=== PATIENT | male | born 1985 | race Caucasian/White ===

== ENCOUNTER 2018-09-15 10:09 | Outpatient (CLI) | payer SELFPAY ==
--- NOTE | 2018-09-15 11:42 | PC.NURSE ---
vs- 122/84, hr 62, 98 oxygen room air, rr 18, temp 97.8
== END 2018-09-15 10:25 | disposition home or self-care (01) ==
PROVIDERS: Visit Provider Nurse Practitioner Family
DX: Z02.4 Encounter for examination for driving license (principal)

== ENCOUNTER 2019-09-24 13:21 | Outpatient (CLI) | payer SELFPAY ==
[2019-09-24 15:40] LABS: Apearance,Urine Clear (Clear); Bilirubin,Urine Negative (Negative); Blood, Urine Negative (Negative); Color,Urine Yellow (Yellow); Glucose,Urine (UA) Negative (Negative); Ketones,Urine Negative (Negative); Protein,Urine Negative (Negative); UTC Leukocyte Esterase,Urine Negative (Negative); UTC Nitrate,Urine Negative (Negative); Urobilinogen,Urine 0.2 EU/dl (0.2)
--- NOTE | 2019-09-24 16:42 | PC.NURSE ---
PT SEEN FOR A [facility] PHYSICAL
== END 2019-09-24 16:42 | disposition home or self-care (01) ==
PROVIDERS: Visit Provider Nurse Practitioner Family
DX: Z02.4 Encounter for examination for driving license (principal)
CPT/HCPCS: 81003

== ENCOUNTER → 2020-05-27 12:18 | Outpatient (CLI) | payer OTHER, SELFPAY ==
--- NOTE | 2020-05-27 12:24 | XR_ITS ---
PROCEDURE: XR KNEE LT 4V CLINICAL INDICATION: left knee pain; weightbearing COMPARISON: No exams were available for comparison FINDINGS: No fracture or dislocation. No lytic or blastic change. There is normal mineralization. The joint spaces are well-preserved. No significant degenerative/arthritic changes. No erosive changes evident. Other findings:None. IMPRESSION: No acute findings. Dictated by: Vinayak Blanton MD 05/27/2020 12:54 Vinayak Blanton MD in [place] 05/27/2020 12:54
== END ==
PROVIDERS: Visit Provider Orthopaedic Surgery
DX: M25.562 Pain in left knee (principal)
CPT/HCPCS: 73564

== ENCOUNTER → 2020-06-06 13:11 | Outpatient (CLI) | payer OTHER, SELFPAY ==
--- NOTE | 2020-06-06 13:11 | MR_ITS ---
PROCEDURE: MR KNEE LT WO CON CLINICAL INDICATION: evaluate for a meniscal tear LT CHRONIC ANTERIOR KNEE PAIN, INJURY 10 YEARS AGO. COMPARISON: CR XR KNEE LT 4V from 05/27/2020 TECHNIQUE: Routine multiplanar multi echo sequences are performed without gadolinium enhancement. FINDINGS: The cruciate ligaments and collateral ligaments have an unremarkable appearance. The quadriceps and patellar tendons are. There is mild thickening of the patellar tendon proximally with increased T2 signal consistent with tendinopathy/tendinosis. There is some increased T2 signal in the Hoffa's fat pad and there is some reactive edema in the lower pole of the patella. There is questionable tear of the posterior patellar tendon at the insertion on the patella versus underlying reactive edema. There is mild thinning of the patellar cartilage posteriorly. No meniscal tear apparent. Minimal amount fluid noted in within the knee joint and in the retropatellar region. IMPRESSION: 1. No internal derangement. 2. Patellar tendinosis with questionable partial tear along the patellar tendon posteriorly at the patellar insertion. Consider follow-up to confirm stability or resolution of the abnormal signal intensity following treatment. 3. Chondromalacia patella Dictated by: Vinayak Blanton MD 06/08/2020 07:40 Vinayak Blanton MD in [place] 06/08/2020 07:40
== END ==
PROVIDERS: PCP Emergency Medicine; Visit Provider Orthopaedic Surgery
DX: M25.562 Pain in left knee (principal); G89.29 Other chronic pain; Z87.828 Personal history of other (healed) physical injury and trauma
CPT/HCPCS: 73721

== ENCOUNTER → 2020-12-15 10:43 | Outpatient (CLI) | payer SELFPAY | PROVIDERS: Visit Provider Nurse Practitioner Family | DX: Z02.4 Encounter for examination for driving license (principal) ==

== ENCOUNTER 2021-01-05 09:22 | Emergency (ER) | payer OTHER, SELFPAY ==
[2021-01-05 10:30] VITALS: BP 146/96; PULSE 74; RESP 18; TEMP 37; O2SAT 100; BMI 28.5
[2021-01-05 11:04] VITALS: BP 146/96; PULSE 74; RESP 18; TEMP 37; O2SAT 100
--- NOTE | 2021-01-05 11:08 | HMH.EDUTC ---
[facility] [place] Disposition Clinical Impression: Exposure to COVID-19 virus Disposition: Home, Self-Care Condition on Discharge: Good Instructions: DI for COVID-19 (Suspected or Confirmed ), Preventing the Spread of Coronavirus Discharge Instructions Additional Instructions: *Monitor Temp, Over the counter Motrin or Tylenol as directed/as needed Tylenol every 4 hours and Motrin every 6 hours (as long as your family doctor has told you that you can take it) for fever or pa-in. and straight to ER if unable to lower temp less than 101.0 after medication given Follow up IMMEDIATELY for new or worsening symptoms or no Noticeable improvement over the next 48-72 hours. 911 for difficulty breathing or swallowing You were tested for today for COVID19 your test result should be back in the next 24-48 hours, Check the [facility] to see if your test results are back in the next 48 it may say detected that means your result is positive.You was given handout instructions on how log on and see your results. If you do not have internet access you may call the [facility] for your results [phone] You was given a handout with instructions for Self Quarantine and Self isolation for while you wait on test results and what to do if they are positive If you are positive the Health Dept will be contacting you also Make sure to take your Vitamins Vit. C Vit D and Zinc if you can take them Referrals: Provider,Referral, [Primary Care Provider] - As needed Forms: Work/School Release Medical Decision Making - Kamran Inquiry Pt receiving controlled substance: No Kamran was queried for this patient: No Vital Signs: 01/05/21 10:30 01/05/21 11:04 Temperature 98.6 F 98.6 F Temperature Source Oral Pulse Rate 74 Pulse Rate [Right Brachial] 74 Respiratory Rate 18 18 Blood Pressure 146/96 H Blood Pressure [Right Arm] 146/96 H Blood Pressure Mean [Right Arm] 112 Blood Pressure Source [Right Arm] Automatic Cuff Blood Pressure Position [Right Arm] Sitting 02 Sat by Pulse Oximetry 100 Oxygen Delivery Method Room Air Orders (Tests/Meds): ORDERS Category Date Time Status Covid-19 Nasal PCR ([facility]) Routine Lab 01/05/21 10:36 Received [facility] [place] HPI - General Stated complaint: covid test Time Seen by Provider: 01/05/21 11:08 Mode of Arrival: Ambulatory Source of Information: Patient Limitations: No Limitations Description of Symptoms (Recalled from Triage Doc. by RN): COVID TEST D/T EXPOSURE. DENIES SYMPTOMS HEENT Symptoms (Recalled from RN notes): No Resp Symptoms (Recalled from RN notes): No Skin Symptoms (Recalled from RN notes): No MS Symptoms (Recalled from RN notes): No Functional Status (Recalled from RN notes): WNL - History of Present Illness Provider Complaint: Patient state that someone at work tested positive for COVID and his employer wanted everyone to get tested States that he is not having any symptoms - Related Data Home Medications Medication Instructions Recorded Confirmed No Known Home Medications 06/12/20 06/12/20 Allergies Allergy/AdvReac Type Severity Reaction Status Date / Time No Known Allergies Allergy Verified 06/12/20 13:37 - Worker's Comp Is this a Worker's Comp case?: No [facility] History - Hepatitis A Screen Drug use history?: No High risk sexual behaviors?: No History of sexually transmitted infection?: No Currently employed?: No Childcare worker?: No Do you have indoor plumbing?: Yes Do you have electricity?: Yes Attestation statement:: This patient has been screened for Hepatitis A risk factors. I have reviewed the patient's past medical history: Yes Medical History: Reports:: Anxiety, Depression Denies:: Diabetes Mellitus Type 1, Diabetes Mellitus Type 2 Laterality Cases: Bilateral: Myringotomy (Ear Tubes) Other Surgeries: Yes: Other Amputation: No Fractures: No Comment: Vickery teeth. - Social History Smoking Status: Never smoker Alcohol Intake: current Alcohol Inta
== END 2021-01-05 11:16 | disposition home or self-care (01) ==
PROVIDERS: Emergency Provider Nurse Practitioner
DX: Z20.822 Contact with and (suspected) exposure to COVID-19 (principal)
CPT/HCPCS: 99202; G0463; U0003

== ENCOUNTER 2021-11-19 10:43 | Emergency (ER) | payer OTHER, SELFPAY ==
[2021-11-19 10:44] VITALS: BP 139/102; PULSE 93; RESP 16; TEMP 36.9; O2SAT 98; BMI 29.9
[2021-11-19 11:00] VITALS: BP 136/96; PULSE 85; RESP 16; O2SAT 97
--- NOTE | 2021-11-19 11:02 | HMH.EDWNDL ---
ED Disposition Clinical Impression: Laceration Disposition: Home, Self-Care Condition on Discharge: Good Instructions: DI for Laceration Repair, DI for Laceration Repair -- Complex Suture Referrals: Yaya Lester MD [Primary Care Provider] - Time of Disposition: 11:33 - Critical Care Critical Care Time: No Attestation: On 11/19/21, the high probability of a clinically significant, sudden or life threatening deterioration of the following system(s) required my full and direct attention, intervention and personal management. The time I documented below is in addition to time spent performing reported procedures but includes the following listed in this critical care notation. Medical Decision Making - Medical Records Medical records reviewed: Yes: I reviewed the patient's medical records. - Kamran Inquiry Pt receiving controlled substance: No Vital Signs: 11/19/21 10:44 11/19/21 11:00 Temperature 98.5 F Temperature Source Oral Pulse Rate 85 Pulse Rate [Radial] 93 H Respiratory Rate 16 16 Blood Pressure 136/96 H Blood Pressure [Right Arm] 139/102 H Blood Pressure Mean 109 Blood Pressure Mean [Right Arm] 114 Blood Pressure Position [Right Arm] Sitting 02 Sat by Pulse Oximetry 98 97 Oxygen Delivery Method Room Air Room Air Wound/Laceration HPI - General Chief Complaint: Wound/Laceration Stated Complaint: wc 11/19 right leg laceration Time Seen by Provider: 11/19/21 11:06 Mode of Arrival: Ambulatory Limitations: No Limitations Description of Symptoms (Recalled from ER Triage Doc. by RN): to ed per pvt car pt states at work using a chainsaw and cut rt upper leg. 5-6 cm laceration noted. no active bleeding note. - History of Present Illness HPI narrative: 36-year-old male, reports tetanus status is up-to-date, presents with laceration to the right anterior thigh, this was sustained while using a chainsaw at work, injury is fairly superficial with mild loss of the skin only with exposed fat tissue. He denies any other injuries, bleeding is controlled at time of arrival. - Related Data Home Medications Medication Instructions Recorded Confirmed No Known Home Medications 06/12/20 06/12/20 Allergies Allergy/AdvReac Type Severity Reaction Status Date / Time No Known Allergies Allergy Verified 06/12/20 13:37 [facility] History - Hepatitis A Screen Attestation statement:: This patient has been screened for Hepatitis A risk factors. Medical History: Reports:: Anxiety, Depression Denies:: Diabetes Mellitus Type 1, Diabetes Mellitus Type 2 Laterality Cases: Bilateral: Myringotomy (Ear Tubes) Other Surgeries: Yes: Other Amputation: No Fractures: No Comment: [place] teeth. - Social History Smoking Status: Never smoker Alcohol Intake: current Alcohol Intake Frequency:: holidays/special occasions only Substance Use Type: denies use Occupational Status: employed Housing: house Household Members: family - Psychiatric History Pschychiatric History:: Reports:: Anxiety, Depression ROS Obtained: Yes All systems reviewed & no additional complaints - Constitutional Constitutional: Reports system reviewed and no additional complaints, except as docu - Eyes Eyes: Reports system reviewed and no additional complaints, except as docu - ENT Ears, Nose, Mouth, and Throat: Reports system reviewed and no additional complaints, except as docu - Cardiovascular Cardiovascular: Reports system reviewed and no additional complaints, except as docu - Respiratory Respiratory: Reports system reviewed and no additional complaints, except as docu - Gastrointestinal Gastrointestingal: Reports: system reviewed and no additional complaints, except as docu - Musculoskeletal Musculoskeletal: Reports system reviewed and no additional complaints, except as docu - Integumentary/Breasts Comments: Wound to the anterior right thigh Physical Exam - General General appearance: alert, in
--- NOTE | 2021-11-19 11:17 | PC.NURSE ---
er doctor at bedside to suture
--- NOTE | 2021-11-19 11:18 | PC.NURSE ---
VIRIDIANA HARDY at suturing
[2021-11-19 11:30] VITALS: BP 135/87; PULSE 85; RESP 17; O2SAT 98
[2021-11-19 11:47] VITALS: BP 135/87; PULSE 85; RESP 16; TEMP 36.9; O2SAT 98
== END 2021-11-19 11:47 | disposition home or self-care (01) ==
PROVIDERS: Emergency Provider Emergency Medicine; PCP Family Medicine
DX: S71.111A Laceration without foreign body, right thigh, initial encounter (principal); W31.82XA Contact with other commercial machinery, initial encounter; Y92.69 Other specified industrial and construction area as the place of occurrence of the external cause; Y99.0 Civilian activity done for income or pay
CPT/HCPCS: 12032; 99282

== ENCOUNTER 2023-03-01 08:42 | Emergency (ER) | payer OTHER, SELFPAY ==
[2023-03-01 08:43] VITALS: BP 152/109; PULSE 72; RESP 18; TEMP 36.5; O2SAT 98; BMI 30.7
--- NOTE | 2023-03-01 08:45 | PC.NURSE ---
DR FAYE AT [facility]
--- NOTE | 2023-03-01 08:51 | US_ITS ---
FINAL REPORT CLINICAL HISTORY: left testicular pain/swelling, poss torsion FINDINGS: Limited sonographic images of the scrotum were obtained. The right testicle measures 3.8 cm in length. No mass is identified. The left testicle is enlarged measuring 4.8 cm in length. It is hypervascular, likely represents orchitis. The left epididymis is also hypervascular. There are small varicoceles bilaterally. IMPRESSION: Left epididymo-orchitis. Reviewed, Interpreted and Dictated by Clinton Nelson III, MD Transcribed by Sharyn Reed Authenticated and [facility]
--- NOTE | 2023-03-01 08:53 | PC.NURSE ---
RADIOLOGY NOTIFIED OF U/S
--- NOTE | 2023-03-01 08:53 | HMH.EDGENADL ---
Discharge Plan Disposition Patient Disposition: Home, Self-Care Prescriptions Prescriptions: New levofloxacin 500 mg tablet 500 mg PO DAILY 10 Days Qty: 10 0RF ondansetron HCl 4 mg tablet 4 mg PO Q8H PRN (Reason: nausea and vomiting) 5 Days Qty: 30 0RF Referrals Follow up/Referrals: Provider,Referral, [Primary Care Provider] - See instructions Activity Restrictions/Add. Instructions Additional Instructions/Restrictions: Please take Levaquin as prescribed for treatment of your testicular infection. Please follow-up with your primary care provider. Take Tylenol and ibuprofen as needed for pain. Please return to the emergency department if you develop any new or worsening symptoms or become concerned for your health. Clinical Impressions Clinical Impression: Acute epididymo-orchitis Discharge ED Provider: Landon Ramirez Adult HPI General Chief complaint: PAIN Stated complaint: PAIN IN LT LEG AND BACK Time Seen by Provider: 03/01/23 08:50 History of Present Illness HPI narrative: 37-year-old male, reportedly previously healthy presents with left testicular pain and swelling. He reports he is concerned about a hernia, he has never been diagnosed with hernia before. He reports pain has been ongoing for the last week. Is intermittent in nature, severe at times, other times goes away completely. He reports no history of testicular pathology. Reports no dysuria, no discharge. No history of fever or recent illness. He is monogamous with his and denies any concern for STDs. Related Data Previous Rx's Medication Instructions Recorded levofloxacin 500 mg tablet 500 mg PO DAILY 10 days #10 tabs 03/01/23 ondansetron HCl 4 mg tablet 4 mg PO Q8H PRN nausea and 03/01/23 vomiting 5 days #30 tabs Allergies Allergy/AdvReac Type Severity Reaction Status Date / Time No Known Allergies Allergy Verified 06/12/20 13:37 [facility] Disclaimer: The information contained in this section may have been updated after the patient was seen, as this information can be updated by other users. Social History (System 12/16/17 @ 15:40 by Geena Adames) Smoking Status: Never smoker alcohol intake: current substance use type: denies use current occupational status: employed Travel in the last 8 weeks: None household members: family housing: house ROS Obtained: Yes All systems reviewed & no additional complaints except as documented Physical Exam General General appearance: alert and in no apparent distress Head Head exam: atraumatic and normocephalic Eye Eye exam: Present normal appearance, PERRL and EOMI ENT ENT exam: Present normal oropharynx and normal external ear exam Neck Neck exam: Present normal inspection and full ROM Chest Chest inspection: Present normal inspection and symmetric chest wall rise; Absent tenderness Respiratory Respiratory exam: Present normal lung sounds bilaterally; Absent respiratory distress Cardiovascular Cardiovascular exam: Present regular rate and normal rhythm Abdominal Exam Abdominal exam: Present soft; Absent distention, tenderness or guarding exam: Present other (Normal penis and scrotum. Left testicle high riding, grossly swollen compared to left, significantly tender. No fullness in the inguinal canal bilaterally.) Extremities Exam Extremities exam: Present normal inspection; Absent edema or joint swelling Back Exam Back exam: Present normal inspection; Absent tenderness Neurological Exam Neurological exam: Present alert and oriented X3; Absent motor sensory deficit Psychiatric Psychiatric exam: Present normal affect and normal mood Skin Skin exam: Present warm, dry and normal color Lymphatic Lymphatic Findings: no adenopathy Medical Decision Making Medical Records Medical records reviewed: Yes I reviewed the patient's medical records. Kamran Inquiry Pt receiving controlled substance: No Kamran was queried for this patient: N
--- NOTE | 2023-03-01 08:55 | PC.NURSE ---
pt given ice water; sommeray's by Dr. Ramirez
[2023-03-01 09:14] VITALS: BP 122/73; PULSE 77; RESP 14; O2SAT 99
--- NOTE | 2023-03-01 09:16 | PC.NURSE ---
Rounded on patient; no needs at this time. Re-checked vitals. Call ambrosio within reach. Patient aware that we are waiting for [place] to go to [place].
--- NOTE | 2023-03-01 09:17 | PC.NURSE ---
PT TO [facility]
[2023-03-01 10:42] LABS: Microscopic, Urine URINE MICROSCOPIC (MICROSCOPIC)
[2023-03-01 10:46] LABS: Appearance,Urine CLEAR (Clear); Bilirubin,Urine Negative (Negative); Blood, Urine Negative (Negative); Color,Urine YELLOW (Yellow); Glucose,Urine (UA) Negative (Negative); Ketones,Urine Negative (Negative); Leukocyte Esterase,Urine Negative (Negative); Nitrate,Urine Negative (Negative); PH,Urine 6.5 (5.0-8.5); Protein,Urine Negative (Negative); Urobilinogen,Urine 0.2 EU/dl (0.2)
--- NOTE | 2023-03-01 10:46 | PC.NURSE ---
DR FAYE AT BEDSIDE TO UPDATE PT
[2023-03-01 11:31] LABS: Squamous Epithelial Cell,Urine Occasional #/hpf (0-5)
--- NOTE | 2023-03-01 11:40 | PC.NURSE ---
DR FAYE AT BEDSIDE TO UPDATE PT
[2023-03-01 11:49] VITALS: BP 122/73; PULSE 77; RESP 14; TEMP 36.5; O2SAT 99
== END 2023-03-01 11:50 | disposition home or self-care (01) ==
PROVIDERS: Emergency Provider Emergency Medicine
DX: N45.3 Epididymo-orchitis (principal)
CPT/HCPCS: 76870; 81001; 99284